=== PATIENT | female | born 1975 | race Caucasian/White ===

== ENCOUNTER 2017-04-12 20:25 | Emergency (ER) | payer BC ==
[2017-04-12] MEDS ORDERED: MORPHINE SULFATE 5 MG/ML PFS IM ONE (21:07)
[2017-04-12] MEDS ORDERED: PROMETHAZINE HCL 25 MG/ML VIAL IM ONE (21:07)
--- NOTE | 2017-04-12 21:37 | Emergency Department Record ---
History of Present Illness - General Chief complaint: Pain Stated complaint: LT SHOULDER INJURY Time Seen by Provider: 04/12/17 20:52 Source: Patient Mode of Arrival: Ambulatory Limitations: No limitations - History of Present Illness Initial comments: pt has been having increased pain in l shoulder without known injury. pt has a hx of shoulder replacement MD Complaint: Extremity pain, Extremity swelling Onset/Timin -: Hour(s) Location: Left, Shoulder Severity scale (1-10): 10 Quality: Aching, Sharp Consistency: Constant Improves with: Nothing Worsens with: Nothing Associated Symptoms: Denies other symptoms - Related Data Home Medications Medication Instructions Recorded Confirmed Last Taken Baclofen [Baclofen] 10 mg PO QID 04/12/17 04/12/17 Unknown Diazepam [Diazepam] 2 mg PO TID 04/12/17 04/12/17 Unknown Trazodone HCl 150 mg PO QHS 04/12/17 04/12/17 Unknown Previous Rx's Medication Instructions Recorded Hydrocodone/Acetaminophen [Lund 1 each PO QID #10 tablet 04/12/17 5-325 Tablet] Allergies Allergy/AdvReac Type Severity Reaction Status Date / Time hydromorphone HCl Allergy HIVES Verified 10/19/14 19:16 [From Dilaudid] Travel Screening - Travel/Exposure Within Last 30 Days Have you traveled within the last 30 days?: No Review of Systems Reviewed: No additional complaints except as noted below Constitutional: Reports: As per HPI. Denies: Chills, Fever, Malaise, Night sweats, Weakness, Weight change Eyes: Reports: As per HPI. Denies: Eye discharge, Eye pain, Photophobia, Vision change ENT: Reports: As per HPI. Denies: Congestion, Dental pain, Ear pain, Epistaxis , Hearing loss, Throat pain Respiratory: Reports: As per HPI. Denies: Cough, Dyspnea, Hemoptysis, Stridor, Wheezes Cardiovascular: Reports: As per HPI. Denies: Arrhythmia, Chest pain, Dyspnea on exertion, Edema, Murmurs, Orthopnea, Palpitations, Paroxysmal nocturnal dyspnea, Rheumatic Fever, Syncope Endocrine: Reports: As per HPI. Denies: Fatigue, Heat or cold intolerance, Polydipsia, Polyuria Gastrointestinal: Reports: As per HPI. Denies: Abdominal pain, Constipation, Diarrhea, Hematemesis, Hematochezia, Melena, Nausea, Vomiting Genitourinary: Reports: As per HPI. Denies: Abnormal menses, Discharge, Dyspareunia, Dysuria, Frequency, Hematuria, Incontinence, Retention, Urgency Musculoskeletal: Reports: As per HPI, Other. Denies: Arthralgia, Back pain, Gout, Joint swelling, Myalgia, Neck pain Skin: Reports: As per HPI. Denies: Bruising, Change in color, Change in hair/ nails, Lesions, Pruritus, Rash Neurological: Reports: As per HPI. Denies: Abnormal gait, Confusion, Headache, Numbness, Paresthesias, Seizure, Tingling, Tremors, Vertigo, Weakness Psychiatric: Reports: As per HPI. Denies: Anxiety, Auditory hallucinations, Depression, Homicidal thoughts, Suicidal thoughts, Visual hallucinations Hematological/Lymphatic: Reports: As per HPI. Denies: Anemia, Blood Clots, Easy bleeding, Easy bruising, Swollen glands Past Medical History - SOCIAL HISTORY Smoking Status: Current every day smoker Alcohol Use: None Drug Use: None - RESPIRATORY Hx Respiratory Disorders: Yes Hx COPD: Yes - CARDIOVASCULAR Hx Cardio Disorders: No - NEURO Hx Neuro Disorders: Yes Hx Headaches: Yes (Migraines) Hx Seizures: Yes - GI Hx GI Disorders: Yes Hx Ulcer: Yes - Hx Genitourinary Disorders: No - ENDOCRINE Hx Endocrine Disorders: No - MUSCULOSKELETAL Hx Musculoskeletal Disorders: Yes Hx Arthritis: Yes Hx Fibromyalgia: Yes - PSYCH Hx Psych Problems: Yes Hx Anxiety: Yes Hx Depression: Yes - HEMATOLOGY/ONCOLOGY Hx Hematology/Oncology Disorders: No Family Medical History Any Significant Family History?: Yes Hx Anxiety: Mother, Grandparents Hx Cancer: Mother, Grandparents Hx Depression: Mother, Grandparents Hx HTN: Father, Mother, Brother/Sister, Grandparents Physical Exam - General General Appearance: Alert, Oriented x3, Cooperative, Mild distress - Head Head exam: Normal inspection - Eye Eye exam: Normal appearance, PERRL, EOMI Pupils: Normal accommodation - ENT ENT exam: Normal exam, Mucous membranes moist, Normal external ear exam, Normal orophraynx Ear exam: Normal external inspection. negative: External canal tenderness Nasal Exam: Normal inspection. negative: Discharge, Sinus tenderness Mouth exam: Normal external inspection, Tongue normal Teeth exam: Normal inspection. negative: Dental caries Throat exam: Normal inspection. negative: Tonsillar erythema, Tonsillar exudate - Neck Neck exam: Normal inspection, Full ROM. negative: Tenderness - Respiratory Respiratory exam: Normal lung sounds bilaterally. negative: Respiratory distress - Cardiovascular Cardiovascular Exam: Regular rate, Normal rhythm, Normal heart sounds - GI/Abdominal GI/Abdominal exam: Soft, Normal bowel sounds. negative: Tenderness - Rectal Rectal exam: Deferred - exam: Deferred - Extremities Extremities exam: Normal capillary refill, Tenderness. negative: Normal inspection, Full ROM Image of Full Body: 1 - tender - Back Back exam: Reports: Normal inspection, Full ROM. Denies: Muscle spasm, Rash noted, Tenderness - Neurological Neurological exam: Alert, CN II-XII intact, Normal gait, Oriented X3 - Psychiatric Psychiatric exam: Normal affect, Normal mood - Skin Skin exam: Dry, Intact, Normal color, Warm Course Vital Signs 04/12/17 20:39 Temperature 98.8 F Pulse Rate [ 93 H Pulse Ox Probe] Respiratory 20 Rate Blood Pressure 121/77 [Right Arm] Pulse Ox 94 L - Reevaluation(s) Reevaluation #1: 04/12/17 22:19 pt feels better. Disposition Disposition: Discharge Clinical Impression: Rotator cuff strain Qualifiers: Encounter type: initial encounter Laterality: left Qualified Code(s): S46.012A - Strain of muscle(s) and tendon(s) of the rotator cuff of left shoulder, initial encounter Disposition: Home, Self-Care Condition: (1) Good Instructions: Rotator Cuff Injury (ED), Shoulder Pain (ED) Additional Instructions: follow up with orthopedic physician tomorrow without fail. return sooner if worse. ice to shoulder. sling for 3 days only. do range of motion exercises. ice to shoulder Prescriptions: Hydrocodone/Acetaminophen [Lund 5-325 Tablet] 1 each PO QID #10 tablet Forms: Patient Portal Access Quality - Quality Measures Quality Measures: N/A - Blood Pressure Screening Does Patient Have Any of the Following: No Blood Pressure Classification: Pre-Hypertensive BP Reading Systolic Measurement: 121 Diastolic Measurement: 77 Screening for High Blood Pressure: < Pre-Hypertensive BP, F/U Documented > [ G8950] Pre-Hypertensive Follow-up Interventions: Follow-up with rescreen every year.
[2017-04-12] MEDS ORDERED: HYDROCODONE/APAP 5/325MG TABLET PO ONE (22:18)
--- NOTE | 2017-04-13 13:35 | RADIOLOGY REPORT ---
EXAM: LEFT SHOULDER HISTORY: PAIN. TECHNIQUE: Three views of the left shoulder were obtained. Comparison: 10/19/14 left shoulder. Encounter: Initial. FINDINGS: Osteopenia. Left humeral arthroplasty. No evidence for acute fracture or dislocation. IMPRESSION: NO ACUTE OSSEOUS ABNORMALITY. JOB NUMBER: [id number] MTDD
== END 2017-04-12 22:34 | disposition home or self-care (01) ==
LOC: ER 20:25
DX: S46.012A Strain of muscle(s) and tendon(s) of the rotator cuff of left shoulder, initial encounter (principal); X58.XXXA Exposure to other specified factors, initial encounter; Z96.612 Presence of left artificial shoulder joint
CPT/HCPCS: 99283; 96372; 99284; 73030; J2270; J2550

== ENCOUNTER 2017-08-16 18:57 | Observation (INO) | payer BC ==
[2017-08-16] MEDS ORDERED: ASPIRIN 81 MG CHEWABLE TABLET PO ONE (19:16)
[2017-08-16 19:18] LABS: BASO % 0.6 % (0-6); EOS % 5.3 % (0-6); GRAN % 56.4 % (47-80); HEMATOCRIT 42.2 % (35.0-47.0); HEMOGLOBIN 13.7 gm/dl (11.6-16.0); LYMPH % 27.4 % (16-45); MEAN CORPUSCULAR HEMOGLOBIN 30.2 pg (27-33); MEAN CORPUSCULAR HGB CONC 32.5 g/dl (32-36); MEAN PLATELET VOLUME 11.2 fl (7.4-10.4); MONO % 10.3 % (0-9); PLATELET COUNT 202 K/uL (130-400); RED BLOOD COUNT 4.54 M/uL (3.80-5.40); RED CELL DISTRIBUTION WIDTH 14.3 % (11.5-14.5); WHITE BLOOD COUNT W/O DIFF 10.7 K/uL (4.2-12.2)
--- NOTE | 2017-08-16 19:21 | Emergency Department Record ---
History of Present Illness - General Chief Complaint: Chest Pain Stated Complaint: CHEST PAIN Time Seen by Provider: 08/16/17 19:00 Source: Patient Mode of Arrival: Ambulatory Limitations: No limitations - History of Present Illness Initial Comments: pt has had cp for 6 hours that was intermittent at first but is now constan . she has pressure. it radiates to axilla. it gets worse w inspir. pos sob. no n /v. pt smokes MD Complaint: Chest pain Onset/Timin -: Hour(s) Onset: Other Pain Location: Left chest, Other Pain Radiation: LUE Severity scale (1-10): 6 Quality: Tightness, Other Worsens With: Inspiration - Related Data Home Medications Medication Instructions Recorded Confirmed Last Taken Butalbital/Aspirin/Caffeine 1 each PO ASDIR 08/16/17 08/16/17 Unknown [Fiorinal 50-325-40 mg Capsule] Gabapentin [Neurontin] 100 mg PO TID 08/16/17 08/16/17 Unknown Sumatriptan Succinate [Imitrex] 100 mg PO ASDIR 08/16/17 08/16/17 08/12/17 Allergies Allergy/AdvReac Type Severity Reaction Status Date / Time hydromorphone HCl Allergy HIVES Unverified 05/08/17 12:32 [From Dilaudid] Travel Screening - Travel/Exposure Within Last 30 Days Have you traveled within the last 30 days?: No - Travel/Exposure Within Last Year Have you traveled outside the [place] in the last year?: No - Additonal Travel Details Have you been exposed to anyone with a communicable illness?: No - Travel Symptoms Symptom Screening: None Review of Systems Reviewed: No additional complaints except as noted below Constitutional: Reports: As per HPI. Denies: Chills, Fever, Malaise, Night sweats, Weakness, Weight change Eyes: Reports: As per HPI. Denies: Eye discharge, Eye pain, Photophobia, Vision change ENT: Reports: As per HPI. Denies: Congestion, Dental pain, Ear pain, Epistaxis , Hearing loss, Throat pain Respiratory: Reports: As per HPI. Denies: Cough, Dyspnea, Hemoptysis, Stridor, Wheezes Cardiovascular: Reports: As per HPI, Chest pain. Denies: Arrhythmia, Dyspnea on exertion, Edema, Murmurs, Orthopnea, Palpitations, Paroxysmal nocturnal dyspnea, Rheumatic Fever, Syncope Endocrine: Reports: As per HPI. Denies: Fatigue, Heat or cold intolerance, Polydipsia, Polyuria Gastrointestinal: Reports: As per HPI. Denies: Abdominal pain, Constipation, Diarrhea, Hematemesis, Hematochezia, Melena, Nausea, Vomiting Genitourinary: Reports: As per HPI. Denies: Abnormal menses, Discharge, Dyspareunia, Dysuria, Frequency, Hematuria, Incontinence, Retention, Urgency Musculoskeletal: Reports: As per HPI. Denies: Arthralgia, Back pain, Gout, Joint swelling, Myalgia, Neck pain Skin: Reports: As per HPI. Denies: Bruising, Change in color, Change in hair/ nails, Lesions, Pruritus, Rash Neurological: Reports: As per HPI. Denies: Abnormal gait, Confusion, Headache, Numbness, Paresthesias, Seizure, Tingling, Tremors, Vertigo, Weakness Psychiatric: Reports: As per HPI. Denies: Anxiety, Auditory hallucinations, Depression, Homicidal thoughts, Suicidal thoughts, Visual hallucinations Hematological/Lymphatic: Reports: As per HPI. 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 Hx Neuro Disorders: Yes Hx Headaches: Yes (Migraines) Hx Seizures: Yes - GI Hx GI Disorders: Yes Hx Reflux: Yes Hx Ulcer: Yes - Hx Genitourinary Disorders: No - ENDOCRINE Hx Endocrine Disorders: No - MUSCULOSKELETAL Hx Musculoskeletal Disorders: Yes Hx Arthritis: Yes Hx Fibromyalgia: Yes - PSYCH Hx Psych Problems: Yes Hx Anxiety: Yes Hx Depression: Yes - HEMATOLOGY/ONCOLOGY Hx Hematology/Oncology Disorders: No Family Medical History Any Significant Family History?: No Hx Anxiety: Mother, Grandparents Hx Cancer: Mother, Grandparents Hx Depression: Mother, Grandparents Hx HTN: Father, Mother, Brother/Sister, Grandparents Course Vital Signs 08/16/17 18:58 Temperature 98 F Pulse Rate 82 Respiratory 18 Rate Blood Pressure 118/77 Pulse Ox 96 - Reevaluation(s) Reevaluation #1: 08/16/17 20:32 pts pain got better with nitro. Medical Decision Making - Lab Data Result diagrams: 08/16/17 19:08 08/16/17 19:08 Disposition Disposition: Admit Clinical Impression: Chest pain Qualifiers: Chest pain type: unspecified Qualified Code(s): R07.9 - Chest pain, unspecified Disposition: Still a Patient at [facility] Decision to Admit: Admit from ER Decision to Admit Date: 08/16/17 Decision to Admit Time: 20:34 Forms: Patient Portal Access Quality - Quality Measures Quality Measures: N/A - Blood Pressure Screening Does Patient Have Any of the Following: No Blood Pressure Classification: Normal BP Reading Systolic Measurement: 118 Diastolic Measurement: 77 Screening for High Blood Pressure: < Normal BP, F/U Not Required > [G8783]
[2017-08-16] MEDS: NITROGLYCERIN 0.4MG SL TABLET #25 BTL SL ONE ×2 (19:29→19:34)
[2017-08-16 19:30] LABS: BLOOD UREA NITROGEN 16 mg/dL (6-20); CREATININE 0.9 mg/dL (0.5-0.9); EST GLOMERULAR FILTRATION RATE > 60 mL/min
[2017-08-16] MEDS ORDERED: 0.9 % SODIUM CHLORIDE 1,000 ML BAG IV ONE (19:30)
[2017-08-16 19:31] LABS: TOTAL PROTEIN 7.1 g/dL (6.6-8.7)
[2017-08-16 19:33] LABS: GLUCOSE,RANDOM 92 mg/dL (74-109)
[2017-08-16 19:35] LABS: ALB/GLOB RATIO 1.5 (1.1-1.8); ALBUMIN 4.3 g/dL (4.0-5.0); ALKALINE PHOSPHATASE 64 U/L (35-104); ALT/SGPT 10 U/L (<33); AST/SGOT 15 U/L (10.0-35.0); CREATINE PHOSPHOKINASE 143 U/L (26-192)
[2017-08-16 19:37] LABS: CKMB 1.8 ng/mL (<3.77)
[2017-08-16] MEDS ORDERED: ACETAMINOPHEN 500 MG TABLET PO ONE (20:10)
[2017-08-16] MEDS ORDERED: LORAZEPAM 2 MG/ML VIAL IV ONE (21:08)
[2017-08-16] MEDS ORDERED: ACETAMINOPHEN 500 MG TABLET PO PRN (21:41)
[2017-08-16] MEDS ORDERED: TEMAZEPAM 15 MG CAPSULE PO PRN (21:41)
[2017-08-16] MEDS ORDERED: BACLOFEN 10 MG TABLET PO SCH (22:00)
[2017-08-16] MEDS ORDERED: DIAZEPAM 2 MG PO SCH (22:00)
[2017-08-16] MEDS: HYDROCODONE/APAP 7.5/325MG TABLET PO ONE (22:27)
[2017-08-16] MEDS: DIAZEPAM 5 MG TABLET PO SCH (22:28)
[2017-08-16] MEDS: GABAPENTIN 100 MG CAPSULE PO SCH (22:28)
[2017-08-16] MEDS ORDERED: TRAZODONE 50 MG TABLET PO SCH (22:30)
[2017-08-17] MEDS: HYDROCODONE/APAP 7.5/325MG TABLET PO ONE (06:20)
--- NOTE | 2017-08-17 07:14 | RADIOLOGY REPORT ---
EXAM: CHEST, TWO VIEWS HISTORY: DIFFICULTY BREATHING. TECHNIQUE: Frontal and lateral views of the chest were obtained. Comparison: 03/25/12 chest x-ray. FINDINGS: The heart size is normal. The lungs are clear. No pneumothorax. Post surgical change left humerus. IMPRESSION: NO ACUTE CARDIOPULMONARY PROCESS. JOB NUMBER: [id number] MTDD
[2017-08-17] MEDS ORDERED: BREO (FLUTICASONE/VILANTEROL) 100MCG/25MCG INHALER INH SCH (10:00)
[2017-08-17] MEDS ORDERED: BACLOFEN 10 MG TABLET PO SCH (10:00)
[2017-08-17] MEDS ORDERED: ASPIRIN 325 MG TAB ENTERIC-COATED PO SCH (10:00)
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
[2017-08-17] MEDS: DIAZEPAM 5 MG TABLET PO SCH (11:08)
[2017-08-17] MEDS: GABAPENTIN 100 MG CAPSULE PO SCH (11:08)
[2017-08-17 11:11] LABS: BASO % 0.9 % (0-6); GRAN % 39.6 % (47-80); HEMATOCRIT 41.3 % (35.0-47.0); HEMOGLOBIN 13.4 gm/dl (11.6-16.0); LYMPH % 43.2 % (16-45); MEAN CELL VOLUME 93.9 fl (81-97); MEAN CORPUSCULAR HEMOGLOBIN 30.5 pg (27-33); MEAN CORPUSCULAR HGB CONC 32.4 g/dl (32-36); MONO % 10.3 % (0-9); PLATELET COUNT 193 K/uL (130-400); RED CELL DISTRIBUTION WIDTH 14.3 % (11.5-14.5); WHITE BLOOD COUNT W/O DIFF 6.5 K/uL (4.2-12.2)
[2017-08-17] MEDS ORDERED: SUMATRIPTAN 6 MG/0.5 ML VIAL SQ PRN (11:42)
--- NOTE | 2017-08-17 12:09 | Discharge Summary ---
Providers Discharge Summary Date: 08/17/17 Date of admission: 08/16/17 21:21 Expected Date of Discharge: 08/17/17 Attending physician: BOZENA LAUREANO Primary care physician: BERNIE PORTILLO M.D. Consults: Consult Orders 08/16/17 21:41 Consult NOW Consulting Provider: Abel Kaufman Physician Instructions: Reason For Exam: chest pain, better w ntg Physical Exam - Vital Signs Vital Signs: Vital Signs - Last 24 Hrs Temp Pulse Pulse Pulse Resp BP BP 08/17/17 11:08 80 16 08/17/17 09:00 98.7 F 68 18 95/56 08/17/17 05:00 98.1 F 68 18 97/59 08/17/17 00:10 98.2 F 65 18 93/53 08/16/17 21:41 98.0 F 71 18 111/53 08/16/17 21:17 71 18 98/72 08/16/17 20:00 65 20 111/71 08/16/17 19:38 85 22 100/70 08/16/17 19:30 84 24 108/66 08/16/17 19:25 74 24 111/74 08/16/17 18:58 98 F 82 18 118/77 Pulse Ox 08/17/17 11:08 08/17/17 09:00 95 08/17/17 05:00 95 08/17/17 00:10 95 08/16/17 21:41 97 08/16/17 21:17 98 08/16/17 20:00 98 08/16/17 19:38 97 08/16/17 19:30 96 08/16/17 19:25 96 08/16/17 18:58 96 - General General Appearance: Alert, Oriented x3, Cooperative, No acute distress Limitations: No limitations - Head Head exam: Atraumatic, Normocephalic, Normal inspection - Eye Eye exam: Normal appearance - Neck Neck exam: Normal inspection, Full ROM - Respiratory Respiratory exam: Normal lung sounds bilaterally - Cardiovascular Cardiovascular Exam: Regular rate, Normal rhythm, Normal heart sounds Peripheral Pulses: 2+: Radial (R), Radial (L), Dorsalis Pedis (R), Dorsalis Pedis (L) - GI/Abdominal GI/Abdominal exam: Soft, Normal bowel sounds - Rectal Rectal exam: Deferred - exam: Deferred - Extremities Extremities exam: Normal capillary refill. negative: Calf tenderness, Pedal edema - Back Back exam: Reports: Normal inspection - Neurological Neurological exam: Alert, Normal gait, Oriented X3 - Psychiatric Psychiatric exam: Normal affect, Normal mood - Skin Skin exam: Dry, Normal color Hospitalization - Hospitalization Admission Diagnosis: chest pain - Problem List/Discharge Diagnosis (1) Chest pain Current Visit: Yes Status: Acute Discharge Diagnosis: Chest pain type: unspecified Qualified Code(s): R07.9 - Chest pain, unspecified Base Code: R07.9 - CHEST PAIN, UNSPECIFIED Comment: 08/17/17: Presented to ED with chest pressure and left axilla pain. Relieved by 2 SL nitro. Initial troponins negative x 2. EKG in ED unremarkable, normal chest x-ray. No cardiac history, current ppd smoker. -Continue serial troponins, EKGs -Dr. Kaufman consult -Exercise stress today -urology nurse (2) Migraine Current Visit: Yes Status: Acute Base Code: G43.909 - MIGRAINE, UNSP, NOT INTRACTABLE, WITHOUT STATUS MIGRAINOSUS Comment: 08/17/17: History of migraines , migraine began after receiving SL nitro. -Imitrex and fioricet to be given after stress test (3) Full code status Current Visit: Yes Status: Acute Base Code: Z78.9 - OTHER SPECIFIED HEALTH STATUS Comment: 08/17/17: Pt full code this admission - Hospitalization Course Disposition: Home, Self-Care Hospital Course: 42 year old female presents with chest pain. The pain began after mowing her lawn yesterday. She described it as substernal chest pressure that radiated to her left axilla. Denied any shortness of breath or nausea with the chest pain. Additional medical history includes migraines, stroke at [facility] 18 years ago, tubal ligation, COPD, and current pack per day smoker. Patient's mother of heart disease. While in the ED patient received 2 doses of SL nitro, which relieved the chest pain. Initial troponins x 2 were negative, and chest x-ray was negative. Patient was afebrile, heart rate 82, blood pressure 118/77, and pulse ox 96% on room air. Initial EKG indicated possible old infarct. Patient denies any cardiac history or having seen a manager outreach in the past. 08/17/17: Pt resting comfortably in bed, alert & oriented x 3. Patient denies any chest pain/pressure, or arm symptoms this morning. Patient is complaining of a migraine, states it started after receiving nitro in the ER. She normally takes Imitrex or Fioricet at home, but we are holding these medications prior to stress test this morning. Dr. Kaufman ([facility]) consulted, would like to do exercise stress this morning. Patient remains on transit manager, cardiac diet. Stress test completed with Dr. aKufman this morning was normal. Patient instructed to follow-up with PCP within the next 2 weeks. Patient instructed to return to ER for any addition chest pain, shortness of breath, or other concerning symptoms. Procedures: Imaging and X-Rays 08/16/17 20:12 CXR [CHEST 2 VIEWS] [RAD] Stat Cardiology Procedures 08/16/17 19:16 EKG NOW 08/16/17 21:41 Seo Assistant .Continuous EKG QDX2@0600 08/17/17 08:54 Stress EKG/STD Treadmill NOW Abnormal Labs: Abnormal Lab Results 08/16/17 08/16/17 08/17/17 Range/Units 19:08 19:08 11:07 MPV 11.2 H 11.0 H (7.4-10.4) fl Gran % 39.6 L (47-80) % Monocytes % 10.3 H 10.3 H (0-9) % Triglycerides 161 H (<150) mg/dL LDL Cholesterol Measurd 106.0 H (0-100) mg/dL Condition at Discharge: (1) Good VTE Discharge VTE Reason For No Overlap Therapy: Not Indicated Discharge Medications - Discharge Medications Home Medications: Ambulatory Orders Baclofen 10 mg PO BID 04/12/17 [Last Taken Unknown] Diazepam 2 mg PO BID 04/12/17 [Last Taken 08/16/17] Trazodone HCl 150 mg PO QHS 04/12/17 [Last Taken 08/15/17] Butalbital/Aspirin/Caffeine [Fiorinal 50-325-40 mg Capsule] 1 each PO Q4H PRN [Last Taken Unknown] Gabapentin [Neurontin] 100 mg PO TID 08/16/17 [Last Taken Unknown] Sumatriptan Succinate [Imitrex] 100 mg PO DAILY PRN 08/16/17 [Last Taken ] Mometasone/Formoterol [Dulera 100 Mcg/5 Mcg Inhaler] 2 puff INH BID 08/17/17 [ Last Taken Unknown] Discharge Plan - Discharge Instructions Activity at Discharge: Increase Activity as Tolerated Diet at Discharge: Regular Diet Additional Instructions: Follow-up with PCP in 2 weeks. Return to ER for any additional chest pain Stop smoking Quality Measures - Quality Measures Quality Measures: Documentation of Current Medications in Medical Record, Screening for High Blood Pressure and F/U Documented - Current Medications Quality Measure: Measure #130: Documentation of Current Medications Documentation of Current Medications: <Current Medications Documented/Reviewed> [G8427] - Blood Pressure Screening Quality Measure: Screening for High Blood Pressure and Follow-Up Documented Does Patient Have Any of the Following: No Blood Pressure Classification: Normal BP Reading Systolic Measurement: 118 Diastolic Measurement: 77 Screening for High Blood Pressure: < Normal BP, F/U Not Required > [G8783] - Elder Abuse Suspicion Index EASI Reference Information: Ehsan DAVID, Ion C, Krista D, Sindi Moody.Development and validation of a tool to assist physicians identification of elder abuse: The Elder Abuse Suspicion Index (EASI ). Journal of Elder Abuse and Neglect, 2008; 20 (3): 276-300.
[2017-08-17 12:10] LABS: ALB/GLOB RATIO 1.6 (1.1-1.8); ALBUMIN 4.1 g/dL (4.0-5.0); ALKALINE PHOSPHATASE 57 U/L (35-104); ALT/SGPT 12 U/L (<33); AST/SGOT 17 U/L (10.0-35.0); BLOOD UREA NITROGEN 14 mg/dL (6-20); CREATININE 0.7 mg/dL (0.5-0.9); EST GLOMERULAR FILTRATION RATE > 60 mL/min; GLUCOSE,RANDOM 85 mg/dL (74-109); TOTAL PROTEIN 6.7 g/dL (6.6-8.7)
--- NOTE | 2017-08-17 16:10 | Medical Records Consult ---
HISTORY OF PRESENT ILLNESS: The patient is a 42-year-old white female who presented to the emergency room after having 5 or 6 hours' worth of intermittent chest pain during the day. It was hard for her to take in a full breath. It did radiate into the axilla. There was no evidence of associated symptoms such as nausea, vomiting, diaphoresis. No prior history of heart disease. EKG in the emergency room was normal. She was admitted for observation. Subsequent enzymes were negative. EKG remains normal. She has no history of heart disease in the past. Denies history of hypertension or diabetes mellitus. She does smoke and has been diagnosed with COPD. MEDICATIONS: Prior to admission: 1. Fiorinal p.r.n. 2. Neurontin 100 mg t.i.d. 3. Imitrex 100 mg as needed. PAST MEDICAL HISTORY: Apparent vascular migraines. See HPI. FAMILY HISTORY: Noncontributory. SOCIAL HISTORY: See HPI. REVIEW OF SYSTEMS: A 10-point review of systems reviewed and confirmed. Pertinent positives in HPI, otherwise negative. PHYSICAL EXAMINATION: VITAL SIGNS: Blood pressure 120/80, pulse 80, respiratory rate 12. GENERAL: A white female in no acute distress. Appears somewhat depressed. HEAD, EYES, EARS, NOSE, THROAT: Normocephalic and atraumatic. Buccal mucosa is pink and moist. There is no cyanosis. Lids, conjunctivae, and sclerae are clear. Pupils are equal, round, and reactive to light and accommodation. NECK: Supple. No bruits. No thyromegaly. CHEST: Occasional expiratory wheeze. Slight increased AP diameter. CARDIOVASCULAR: Regular. No murmur, gallops, lifts, or heaves are noted. ABDOMEN: Soft, nontender. EXTREMITIES: Pulses are equal in lower extremities. No cyanosis or edema. NEUROLOGIC: Cranial nerves II-XII are intact. Sensation is intact. PSYCHIATRIC: Patient oriented to person, place, and time. Does appear somewhat depressed. DIAGNOSTIC DATA: Patient exercised on a treadmill, went about 11 METS. No EKG changes. IMPRESSION: 1. Noncardiac chest pain. 2. History of migraines. 3. Chronic obstructive pulmonary disease. Continues to smoke. PLAN: The patient needs to stop smoking. Can be followed as an o patient with the primary physician for primary risk factor stratification and treatment. [facility]ITALBert
--- NOTE | 2017-08-17 16:10 | Stress Test Report ---
DATE OF STUDY: 08/17/2017 Resting blood pressure 128/70. Resting EKG with sinus rhythm present. Normal electrocardiogram. Patient exercised in the treadmill using the August protocol exercising briefly into stage 4. Heart rate rise approximately 160. Maximum recorded blood pressure 174/87. There is a fair amount of baseline artifact at peak exercise but the immediate post-exercise tracing did not reveal any significant ST-segment changes. Occasional PVCs are noted. IMPRESSION: This is a technically negative stress test at approximately the 11-12 MET level in an individual who has an above-average level of cardiovascular fitness for age. MTDD
== END 2017-08-17 14:14 | disposition home or self-care (01) ==
LOC: ER 18:57 → MEDSURG 21:21
PROVIDERS: ADMIT Internal Medicine; ATTEND Internal Medicine
DX: R07.9 Chest pain, unspecified (principal); G43.909 Migraine, unspecified, not intractable, without status migrainosus; J44.9 Chronic obstructive pulmonary disease, unspecified; K21.9 Gastro-esophageal reflux disease without esophagitis; K25.9 Gastric ulcer, unspecified as acute or chronic, without hemorrhage or perforation; M19.90 Unspecified osteoarthritis, unspecified site; M79.7 Fibromyalgia; F17.210 Nicotine dependence, cigarettes, uncomplicated; R56.9 Unspecified convulsions; R55 Syncope and collapse
CPT/HCPCS: 99285 ×2; 96374; 82550; 85025 ×2; 82553 ×2; 80053 ×2; 80061; 84484 ×2; 85379; 71046; 93005 ×2; 93017; 93010; G0378 ×2; J3490 ×2; J3030; J2060; 99220; J7030

== ENCOUNTER 2017-10-10 07:36 | Emergency (ER) | payer BC ==
[2017-10-10] MEDS ORDERED: IBUPROFEN 600 MG TABLET PO ONE (08:13)
--- NOTE | 2017-10-10 08:13 | Emergency Department Record ---
History of Present Illness - General Chief Complaint: Ankle/Foot Injury Stated Complaint: RIGHT BIG TOE INJURY Time Seen by Provider: 10/10/17 08:07 Source: Patient, RN notes reviewed Mode of Arrival: Ambulatory - History of Present Illness Initial Comments: ran into a baby gate 2 hours ago and fine before that. Onset/Timin -: Hour(s) - Related Data Previous Rx's Medication Instructions Recorded Hydrocodone/Acetaminophen [[place] 1 tab PO Q6H PRN #12 tab 10/10/17 5mg/325mg] Allergies Allergy/AdvReac Type Severity Reaction Status Date / Time hydromorphone HCl Allergy HIVES Unverified 10/10/17 07:52 [From Dilaudid] Travel Screening - Travel/Exposure Within Last 30 Days Have you traveled within the last 30 days?: No - Travel/Exposure Within Last Year Have you traveled outside the [place] in the last year?: No - Additonal Travel Details Have you been exposed to anyone with a communicable illness?: No Review of Systems Reviewed: No additional complaints except as noted below Constitutional: Reports: As per HPI. Denies: Chills, Fever, Malaise, Night sweats, Weakness, Weight change Eyes: Reports: As per HPI. Denies: Eye discharge, Eye pain, Photophobia, Vision change ENT: Reports: As per HPI. Denies: Congestion, Dental pain, Ear pain, Epistaxis , Hearing loss, Throat pain Respiratory: Reports: As per HPI. Denies: Cough, Dyspnea, Hemoptysis, Stridor, Wheezes Cardiovascular: Reports: As per HPI. Denies: Arrhythmia, Chest pain, Dyspnea on exertion, Edema, Murmurs, Orthopnea, Palpitations, Paroxysmal nocturnal dyspnea, Rheumatic Fever, Syncope Endocrine: Reports: As per HPI. Denies: Fatigue, Heat or cold intolerance, Polydipsia, Polyuria Gastrointestinal: Reports: As per HPI. Denies: Abdominal pain, Constipation, Diarrhea, Hematemesis, Hematochezia, Melena, Nausea, Vomiting Genitourinary: Reports: As per HPI. Denies: Abnormal menses, Discharge, Dyspareunia, Dysuria, Frequency, Hematuria, Incontinence, Retention, Urgency Musculoskeletal: Reports: As per HPI. Denies: Arthralgia, Back pain, Gout, Joint swelling, Myalgia, Neck pain Skin: Reports: As per HPI. Denies: Bruising, Change in color, Change in hair/ nails, Lesions, Pruritus, Rash Neurological: Reports: As per HPI. Denies: Abnormal gait, Confusion, Headache, Numbness, Paresthesias, Seizure, Tingling, Tremors, Vertigo, Weakness Psychiatric: Reports: As per HPI. Denies: Anxiety, Auditory hallucinations, Depression, Homicidal thoughts, Suicidal thoughts, Visual hallucinations Hematological/Lymphatic: Reports: As per HPI. 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 - NEURO Hx Neuro Disorders: Yes Hx Headaches: Yes (Migraines) Hx Seizures: Yes - GI Hx GI Disorders: Yes Hx Reflux: Yes Hx Ulcer: Yes - Hx Genitourinary Disorders: No - ENDOCRINE Hx Endocrine Disorders: No - MUSCULOSKELETAL Hx Musculoskeletal Disorders: Yes Hx Arthritis: Yes Hx Fibromyalgia: Yes - PSYCH Hx Psych Problems: Yes Hx Anxiety: Yes Hx Depression: Yes - HEMATOLOGY/ONCOLOGY Hx Hematology/Oncology Disorders: No Family Medical History Any Significant Family History?: Yes Hx Anxiety: Mother, Grandparents Hx Cancer: Mother, Grandparents Hx Depression: Mother, Grandparents Hx HTN: Father, Mother, Brother/Sister, Grandparents Physical Exam - General General Appearance: Alert, Oriented x3, Cooperative, No acute distress - Head Head exam: Normal inspection - Eye Eye exam: Normal appearance, PERRL Pupils: Normal accommodation - ENT ENT exam: Normal exam, Mucous membranes moist, Normal external ear exam, Normal orophraynx, TM's normal bilaterally Ear exam: Normal external inspection. negative: External canal tenderness Nasal Exam: Normal inspection. negative: Discharge, Sinus tenderness Mouth exam: Normal external inspection, Tongue normal Teeth exam: Normal inspection. negative: Dental caries Throat exam: Normal inspection. negative: Tonsillar erythema, Tonsillar exudate - Neck Neck exam: Normal inspection, Full ROM. negative: Tenderness - Respiratory Respiratory exam: Normal lung sounds bilaterally. negative: Respiratory distress - Cardiovascular Cardiovascular Exam: Regular rate, Normal rhythm, Normal heart sounds - GI/Abdominal GI/Abdominal exam: Soft, Normal bowel sounds. negative: Tenderness - Rectal Rectal exam: Deferred - exam: Deferred - Extremities Extremities exam: Normal capillary refill, Tenderness (pain and swollen in the first MP area of foot right) - Back Back exam: Reports: Normal inspection, Full ROM. Denies: Muscle spasm, Rash noted, Tenderness - Neurological Neurological exam: Alert, Normal gait, Oriented X3, Reflexes normal - Psychiatric Psychiatric exam: Normal affect, Normal mood - Skin Skin exam: Dry, Intact, Normal color, Warm Course Vital Signs 10/10/17 07:38 Temperature 98.0 F Pulse Rate 75 Respiratory 17 Rate Blood Pressure 113/79 Pulse Ox 96 - Reevaluation(s) Reevaluation #1: patient states she can take norco 10/10/17 09:00 Medical Decision Making - Data Complexity MDM Data: X-Ray Ordered and/or Reviewed (right great toe fracture proximal phalanx) Disposition Clinical Impression: Toe fracture, right Qualifiers: Encounter type: initial encounter Toe: great toe Fracture type: closed Phalanx : proximal Fracture alignment: displaced Qualified Code(s): S92.411A - Displaced fracture of proximal phalanx of right great toe, initial encounter for closed fracture Disposition: Home, Self-Care Condition: (1) Good Instructions: Toe Fracture (ED) Additional Instructions: follow up with Dr. Rice in 10 days. motrin OTC 3 oills three times a day and if you need more pain control use norco every 6 hoursas needed Prescriptions: Hydrocodone/Acetaminophen [[place] 5mg/325mg] 1 tab PO Q6H PRN #12 tab PRN Reason: Pain - General Forms: Patient Portal Access Time of Disposition: 09:03 Quality - Quality Measures Quality Measures: N/A - Headache: Neuroimaging ICD10 Codes Entered: No - Blood Pressure Screening Does Patient Have Any of the Following: No Blood Pressure Classification: Normal BP Reading Systolic Measurement: 113 Diastolic Measurement: 79 Screening for High Blood Pressure: < Normal BP, F/U Not Required > [G8783]
--- NOTE | 2017-10-11 07:42 | RADIOLOGY REPORT ---
EXAM: RIGHT FOOT HISTORY: PAIN. TECHNIQUE: Three views of the right foot were performed. FINDINGS: There is a comminuted nondisplaced fracture deformity of the first proximal phalanx. There is soft tissue swelling. The remaining osseous structures are intact. IMPRESSION: COMMINUTED FRACTURE DEFORMITY OF THE FIRST PROXIMAL PHALANX. SOFT TISSUE SWELLING. JOB NUMBER: [id number] MTDD
== END 2017-10-10 09:25 | disposition home or self-care (01) ==
LOC: ER 07:36
DX: S92.411A Displaced fracture of proximal phalanx of right great toe, initial encounter for closed fracture (principal); W22.8XXA Striking against or struck by other objects, initial encounter; J44.9 Chronic obstructive pulmonary disease, unspecified; F17.210 Nicotine dependence, cigarettes, uncomplicated
CPT/HCPCS: 99283

== ENCOUNTER 2018-08-01 12:25 | Emergency (ER) | payer BC ==
[2018-08-01] MEDS ORDERED: 0.9 % SODIUM CHLORIDE 1,000 ML BAG IV ONE ×2 (12:55→13:04)
--- NOTE | 2018-08-01 12:55 | Emergency Department Record ---
History of Present Illness - General Chief Complaint: Seizures Stated Complaint: SEIZURE Time Seen by Provider: 08/01/18 12:49 Source: EMS Mode of Arrival: EMS - History of Present Illness Initial Comments: EMS report that the patient has had 3 seizures today, the 3rd seizure witnessed in the ambulance en route here. She was given 10 mg IM versed and the seizure stopped. The patient has a history of seizures in the past. Last one about 6 months ago. Unab;le to obtain further history at this time. MD Complaint: Seizure Onset/Timin -: Hour(s) Duration of Episode: 30 -: Second(s) Witnessed: Yes - by EMS Trauma: No Seizure History: Known seizure disorder, Compliant with medication Place: Home Possible Precipitating Event: None Associated Symptoms: Denies other symptoms Treatments Prior to Arrival: None - Related Data Previous Rx's Medication Instructions Recorded Hydrocodone/Acetaminophen [[place] 1 tab PO Q6H PRN #12 tab 10/10/17 5mg/325mg] Allergies Allergy/AdvReac Type Severity Reaction Status Date / Time hydromorphone HCl Allergy HIVES Verified 08/01/18 12:29 [From Dilaudid] Travel Screening - Travel/Exposure Within Last 30 Days Have you traveled within the last 30 days?: No - Travel/Exposure Within Last Year Have you traveled outside the [place] in the last year?: No - Additonal Travel Details Have you been exposed to anyone with a communicable illness?: No - Travel Symptoms Symptom Screening: None Review of Systems ROS unobtainable: Other (sedation from versed after a seizure) Reviewed: No additional complaints except as noted below Constitutional: Reports: As per HPI. Denies: Chills, Fever, Malaise, Night sweats, Weakness, Weight change Eyes: Reports: As per HPI. Denies: Eye discharge, Eye pain, Photophobia, Vision change ENT: Reports: As per HPI. Denies: Congestion, Dental pain, Ear pain, Epistaxis , Hearing loss, Throat pain Respiratory: Reports: As per HPI. Denies: Cough, Dyspnea, Hemoptysis, Stridor, Wheezes Cardiovascular: Reports: As per HPI. Denies: Arrhythmia, Chest pain, Dyspnea on exertion, Edema, Murmurs, Orthopnea, Palpitations, Paroxysmal nocturnal dyspnea, Rheumatic Fever, Syncope Endocrine: Reports: As per HPI. Denies: Fatigue, Heat or cold intolerance, Polydipsia, Polyuria Gastrointestinal: Reports: As per HPI. Denies: Abdominal pain, Constipation, Diarrhea, Hematemesis, Hematochezia, Melena, Nausea, Vomiting Genitourinary: Reports: As per HPI. Denies: Abnormal menses, Discharge, Dyspareunia, Dysuria, Frequency, Hematuria, Incontinence, Retention, Urgency Musculoskeletal: Reports: As per HPI. Denies: Arthralgia, Back pain, Gout, Joint swelling, Myalgia, Neck pain Skin: Reports: As per HPI. Denies: Bruising, Change in color, Change in hair/ nails, Lesions, Pruritus, Rash Neurological: Reports: As per HPI. Denies: Abnormal gait, Confusion, Headache, Numbness, Paresthesias, Seizure, Tingling, Tremors, Vertigo, Weakness Psychiatric: Reports: As per HPI. Denies: Anxiety, Auditory hallucinations, Depression, Homicidal thoughts, Suicidal thoughts, Visual hallucinations Hematological/Lymphatic: Reports: As per HPI. Denies: Anemia, Blood Clots, Easy bleeding, Easy bruising, Swollen glands Past Medical History - SOCIAL HISTORY Smoking Status: Current every day smoker Alcohol Use: None Drug Use: None - RESPIRATORY Hx Respiratory Disorders: Yes Hx COPD: Yes - CARDIOVASCULAR Hx Cardio Disorders: Yes Comment:: Pt unsure but reports hx 18 year [employer] - NEURO Hx Neuro Disorders: Yes Hx Headaches: Yes (Migraines) Hx Seizures: Yes - GI Hx GI Disorders: Yes Hx Reflux: Yes Hx Ulcer: Yes - Hx Genitourinary Disorders: No - ENDOCRINE Hx Endocrine Disorders: No - MUSCULOSKELETAL Hx Musculoskeletal Disorders: Yes Hx Arthritis: Yes Hx Fibromyalgia: Yes - PSYCH Hx Psych Problems: Yes Hx Anxiety: Yes Hx Depression: Yes - HEMATOLOGY/ONCOLOGY Hx Hematology/Oncology Disorders: No Family Medical History Any Significant Family History?: Yes Hx Anxiety: Mother, Grandparents Hx Cancer: Mother, Grandparents Hx Depression: Mother, Grandparents Hx HTN: Father, Mother, Brother/Sister, Grandparents Physical Exam - General General Appearance: Oriented x3, Cooperative, No acute distress, Other (resting about arousable with stimulation) - Head Head exam: Normal inspection - Eye Eye exam: Normal appearance, PERRL Pupils: Normal accommodation - ENT ENT exam: Normal exam, Mucous membranes moist, Normal external ear exam, Normal orophraynx, TM's normal bilaterally Ear exam: Normal external inspection. negative: External canal tenderness Nasal Exam: Normal inspection. negative: Discharge, Sinus tenderness Mouth exam: Normal external inspection, Tongue normal Teeth exam: Normal inspection. negative: Dental caries Throat exam: Normal inspection. negative: Tonsillar erythema, Tonsillar exudate - Neck Neck exam: Normal inspection, Full ROM. negative: Tenderness - Respiratory Respiratory exam: Normal lung sounds bilaterally. negative: Respiratory distress - Cardiovascular Cardiovascular Exam: Regular rate, Normal rhythm, Normal heart sounds - GI/Abdominal GI/Abdominal exam: Soft, Normal bowel sounds. negative: Tenderness - Rectal Rectal exam: Deferred - exam: Deferred - Extremities Extremities exam: Normal inspection, Full ROM, Normal capillary refill. negative: Tenderness - Back Back exam: Reports: Normal inspection, Full ROM. Denies: Muscle spasm, Rash noted, Tenderness - Neurological Neurological exam: Alert, CN II-XII intact, Normal gait, Oriented X3, Reflexes normal. negative: Motor sensory deficit - Psychiatric Psychiatric exam: Normal affect, Normal mood - Skin Skin exam: Dry, Intact, Normal color, Warm Course Vital Signs 08/01/18 12:30 Temperature 98.1 F Pulse Rate 84 Respiratory 14 Rate Blood Pressure 108/74 Pulse Ox 95 - Reevaluation(s) Reevaluation #1: Daughter is now at bedside. Additional history obtained and in agreement with previous history. 08/01/18 13:08 Reevaluation #2: Patient states she wants to go home now. All studies have not yet resulted. Talked her into waiting for results for now. 08/01/18 14:42 Reevaluation #3: Patient ambulated to the bathroom and is more aware of her surroundings. states she has improved and is ready for discharge. He is requesting tylenol for a headache. Reviewed CT results with patient and . Her back teeth and masseter region is tender on palpaption, but normal to inspection. 08/01/18 15:46 08/01/18 15:48 Medical Decision Making - Management Options MDM Management: No Additional Work-up Planned - Data Complexity MDM Data: Labs Ordered and/or Reviewed, X-Ray Ordered and/or Reviewed ( Noncontrast Head CT Negatie for acute abnormality. Incidentl note of soft tissue gas in muscles of mastication left side ? bit cheek? per radiologist.) - Lab Data Result diagrams: 08/01/18 13:15 08/01/18 13:15 Disposition Disposition: Discharge Clinical Impression: Seizure, Seizure disorder Disposition: Home, Self-Care Condition: (1) Good Instructions: Recurrent Seizures in Adults (ED) Additional Instructions: Continue present medications. Ice to your jaws if sensitive the next 48 hours. Follow up with your PCP as directed as needed. Eat three or more balanced meals daily every day. Forms: Patient Portal Access Quality - Quality Measures Quality Measures: N/A - Headache: Neuroimaging ICD10 Codes Entered: Yes View Detail: Yes Neurological Exam: Patient did NOT have a normal neurological exam. Headache: Use of Neuroimaging: Patient Exclusion, Abnormal Neuro Exam Medical Reason for Exam: Abnormal Neurological Exam - Blood Pressure Screening Does Patient Have Any of the Following: No Blood Pressure Classification: Normal BP Reading Systolic Measurement: 108 Diastolic Measurement: 74 Screening for High Blood Pressure: < Normal BP, F/U Not Required > [G8783]
[2018-08-01 13:28] LABS: BASO % 0.3 % (0-6); EOS % 1.8 % (0-6); GRAN % 73.1 % (47-80); HEMATOCRIT 43.5 % (35.0-47.0); HEMOGLOBIN 14.4 gm/dl (11.6-16.0); LYMPH % 16.6 % (16-45); MEAN CELL VOLUME 93.8 fl (81-97); MEAN CORPUSCULAR HGB CONC 33.1 g/dl (32-36); MEAN PLATELET VOLUME 11.1 fl (7.4-10.4); MONO % 8.2 % (0-9); PLATELET COUNT 183 K/uL (130-400); RED BLOOD COUNT 4.64 M/uL (3.80-5.40); RED CELL DISTRIBUTION WIDTH 13.4 % (11.5-14.5); WHITE BLOOD COUNT W/O DIFF 10.8 K/uL (4.2-12.2)
[2018-08-01 13:39] LABS: URINE APPEARANCE CLEAR; URINE BILIRUBIN NEGATIVE (NEGATIVE); URINE BLOOD TRACE-I (NEGATIVE); URINE COLOR YELLOW; URINE GLUCOSE (UA) NEGATIVE (NEGATIVE); URINE KETONE NEGATIVE (NEGATIVE); URINE LEUKOCYTE ESTERASE NEGATIVE (NEGATIVE); URINE NITRITE NEGATIVE (NEGATIVE); URINE PROTEIN NEGATIVE (NEGATIVE); URINE UROBILINOGEN 0.2 E.U./dL (0.20 - 1.00)
[2018-08-01 13:40] LABS: BLOOD UREA NITROGEN 18 mg/dL (6-20); CREATININE 0.9 mg/dL (0.5-0.9); EST GLOMERULAR FILTRATION RATE > 60 mL/min; TOTAL PROTEIN 6.8 g/dL (6.6-8.7)
[2018-08-01 13:42] LABS: GLUCOSE,RANDOM 105 mg/dL (74-109)
[2018-08-01 13:43] LABS: AMPHETAMINE SCREEN URINE NOT DETECTED; BARBITURATE SCREEN URINE NOT DETECTED; BENZODIAZEPINE SCREEN URINE DETECTED; COCAINE SCREEN URINE NOT DETECTED; METHADONE SCREEN URINE NOT DETECTED; METHAMPHETAMINE SCREEN NOT DETECTED; OPIATE SCREEN URINE NOT DETECTED; OXYCODONE SCREEN URINE NOT DETECTED; PHENCYCLIDINE SCREEN URINE NOT DETECTED; PROPOXYPHENE SCREEN URINE NOT DETECTED; THC SCREEN URINE NOT DETECTED; TRICYCLIC ANTIDEPRESSANT SCRN NOT DETECTED
[2018-08-01 13:44] LABS: HCG,QUALITATIVE URINE NEGATIVE (NEGATIVE)
[2018-08-01 13:45] LABS: ACETAMINOPHEN 7.1 ug/mL (10.0-30.0); ALB/GLOB RATIO 1.6 (1.1-1.8); ALBUMIN 4.2 g/dL (4.0-5.0); ALKALINE PHOSPHATASE 59 U/L (35-104); ALT/SGPT 8 U/L (<33); AST/SGOT 14 U/L (10.0-35.0); SALICYLATE 5.2 mg/dL (2.8-20)
[2018-08-01 13:56] LABS: URINE EPITHELIAL CELLS 0 - 2 (FEW); URINE RBC 0 - 2 (NONE SEEN); URINE WBC NONE SEEN (0-2/hpf)
[2018-08-01 13:57] LABS: URINE BACTERIA NONE SEEN
[2018-08-01] MEDS ORDERED: ACETAMINOPHEN 500 MG TABLET PO ONE (15:47)
--- NOTE | 2018-08-04 07:53 | CT SCAN REPORT ---
EXAM: CT SCAN HEAD WO CONTRAST HISTORY: SEIZURE. TECHNIQUE: Noncontrast CT brain. COMPARISON: CT brain, 07/22/2013. FINDINGS: No midline shift, mass effect, or abnormal intra- or extra-axial fluid collection. No cerebral edema, focal mass, or intracranial hemorrhage detected. Ventricle sizes appear similar from prior exam. Basal cisterns are not effaced. No displaced calvarial fracture detected. Visualized paranasal sinuses are clear. Cluster of foci of gas in the left facial soft tissues centered near the muscles of mastication, predominantly seen near the left pterygoid muscles with gas seen tracking superiorly along the deep surface of the temporalis muscle. A few foci of gas are also seen near the right pterygoid muscles. IMPRESSION: 1. NO ACUTE INTRACRANIAL FINDINGS. 2. NONSPECIFIC SOFT TISSUE GAS FOCI PREDOMINANTLY SEEN NEAR THE LEFT MUSCLES OF MASTICATION NEAR THE PTERYGOIDS AND TRACKING SUPERIORLY ALONG THE LEFT TEMPORALIS MUSCLE. A FEW FOCI OF GAS ALSO SEEN NEAR THE RIGHT PTERYGOID MUSCULATURE. FINDINGS OF UNCERTAIN CLINICAL SIGNIFICANCE. JOB NUMBER: [id number] MTDD
== END 2018-08-01 16:16 | disposition home or self-care (01) ==
LOC: ER 12:25
DX: G40.909 Epilepsy, unspecified, not intractable, without status epilepticus (principal); R51 Headache
CPT/HCPCS: 99283; 99284; 85025; 80053; 81001; 81025; 80305; 70450; G0480 ×3; 80320; 80329

== ENCOUNTER 2019-02-23 15:30 | Emergency (ER) | payer BC ==
[2019-02-23 16:35] LABS: ABSOLUTE NEUTROPHIL COUNT 6.13; BASO % 0.3 % (0-6); EOS % 4.1 % (0-6); GRAN % 65.2 % (47-80); HEMATOCRIT 42.4 % (35.0-47.0); HEMOGLOBIN 13.8 gm/dl (11.6-16.0); LYMPH % 24.3 % (16-45); MEAN CELL VOLUME 93.4 fl (81-97); MEAN CORPUSCULAR HEMOGLOBIN 30.4 pg (27-33); MEAN CORPUSCULAR HGB CONC 32.5 g/dl (32-36); MEAN PLATELET VOLUME 11.3 fl (7.4-10.4); MONO % 6.1 % (0-9); PLATELET COUNT 175 K/uL (130-400); RED BLOOD COUNT 4.54 M/uL (3.80-5.40); WHITE BLOOD COUNT W/O DIFF 9.4 K/uL (4.2-12.2)
[2019-02-23 16:47] LABS: BLOOD UREA NITROGEN 19 mg/dL (6-20); CREATININE 0.9 mg/dL (0.5-0.9); EST GLOMERULAR FILTRATION RATE > 60 mL/min
[2019-02-23 16:48] LABS: TOTAL PROTEIN 7.2 g/dL (6.6-8.7)
[2019-02-23 16:50] LABS: GLUCOSE,RANDOM 97 mg/dL (74-109)
--- NOTE | 2019-02-23 16:51 | CT SCAN REPORT ---
EXAMINATION: CT Head without IV Contrast EXAM DATE: 02/23/2019 4:43 PM TECHNIQUE: Standard protocol CT images of the head were obtained without intravenous contrast. Orantes l and sagittal reconstructed images were created. INDICATION: amnesia COMPARISON: 08/01/2018 HAND DOMINANCE: Unknown. ENCOUNTER: Not applicable FINDINGS: 1. There is no intracranial mass, midline shift, extraaxial fluid collection or hemorrhage. 2. The ventricles, sulci and cisterns are normal. 3. There are no suspicious area of altered attenuation. 4. There is no fracture. Small sclerotic focus in the clivus is similar compared to prior exam and g iven stability likely represents a benign lesion. 5. The visualized aspects of the orbits, paranasal sinuses, and mastoid air cells are normal. IMPRESSION: 1. No acute intracranial process evident. Dictated by: Eliseo Mcgowan DO on 02/23/2019 4:47 PM. .
[2019-02-23 16:53] LABS: ALB/GLOB RATIO 1.8 (1.1-1.8); ALBUMIN 4.6 g/dL (4.0-5.0); ALKALINE PHOSPHATASE 59 U/L (35-104); ALT/SGPT 7 U/L (<33); AST/SGOT 11 U/L (10.0-35.0)
[2019-02-23 16:54] LABS: ALCOHOL < 0.010 g/dL (0-0.010)
[2019-02-23 17:00] LABS: URINE APPEARANCE CLEAR; URINE BILIRUBIN NEGATIVE (NEGATIVE); URINE BLOOD NEGATIVE (NEGATIVE); URINE COLOR YELLOW; URINE GLUCOSE (UA) NEGATIVE (NEGATIVE); URINE KETONE NEGATIVE (NEGATIVE); URINE LEUKOCYTE ESTERASE NEGATIVE (NEGATIVE); URINE NITRITE NEGATIVE (NEGATIVE); URINE PROTEIN NEGATIVE (NEGATIVE); URINE UROBILINOGEN 0.2 E.U./dL (0.20 - 1.00)
[2019-02-23 17:05] LABS: AMPHETAMINE SCREEN URINE NOT DETECTED; BARBITURATE SCREEN URINE NOT DETECTED; BENZODIAZEPINE SCREEN URINE DETECTED; COCAINE SCREEN URINE NOT DETECTED; METHADONE SCREEN URINE NOT DETECTED; METHAMPHETAMINE SCREEN NOT DETECTED; OPIATE SCREEN URINE NOT DETECTED; OXYCODONE SCREEN URINE NOT DETECTED; PHENCYCLIDINE SCREEN URINE NOT DETECTED; PROPOXYPHENE SCREEN URINE NOT DETECTED; THC SCREEN URINE NOT DETECTED; TRICYCLIC ANTIDEPRESSANT SCRN NOT DETECTED
--- NOTE | 2019-02-23 17:33 | Emergency Department Record ---
History of Present Illness - General Chief Complaint: Confusion Stated Complaint: CONFUSION, Time Seen by Provider: 02/23/19 15:59 Source: Patient, Family Mode of Arrival: Ambulatory Limitations: No limitations - History of Present Illness Initial Comments: pt was brought in for amnesia. she thinks it is 2011 and she doesnt remember that she has grandkids. she has a hx of seizures but doesnt know if she had one today. she was driving and became confused. her daughter brought her in. she has had postictal periods of confusion in tthis long.he past but none that lasted MD Complaint: Altered mental status, Confusion -: Unknown Severity: Moderate Consistency: Constant Context: Seizure disorder, History of similar presentation Associated Symptoms: Seizure - Michelle Coma Scale Eye Response: (4) Open spontaneously Motor Response: (6) Obeys commands Verbal Response: (5) Oriented Michelle Total: 15 - Symptoms of Stroke Symptoms of stroke: Onset of Confusion, Unable to Think Clearly - Related Data Previous Rx's Medication Instructions Recorded Hydrocodone/Acetaminophen [[place] 1 tab PO Q6H PRN #12 tab 10/10/17 5mg/325mg] Allergies Allergy/AdvReac Type Severity Reaction Status Date / Time hydromorphone HCl Allergy HIVES Verified 02/23/19 15:43 [From Dilaudid] Travel Screening - Travel/Exposure Within Last 30 Days Have you traveled within the last 30 days?: No Review of Systems Reviewed: No additional complaints except as noted below Constitutional: Reports: As per HPI. Denies: Chills, Fever, Malaise, Night sweats, Weakness, Weight change Eyes: Reports: As per HPI. Denies: Eye discharge, Eye pain, Photophobia, Vision change ENT: Reports: As per HPI. Denies: Congestion, Dental pain, Ear pain, Epistaxis, Hearing loss, Throat pain Respiratory: Reports: As per HPI. Denies: Cough, Dyspnea, Hemoptysis, Stridor, Wheezes Cardiovascular: Reports: As per HPI. Denies: Arrhythmia, Chest pain, Dyspnea on exertion, Edema, Murmurs, Orthopnea, Palpitations, Paroxysmal nocturnal dyspnea, Rheumatic Fever, Syncope Endocrine: Reports: As per HPI. Denies: Fatigue, Heat or cold intolerance, Polydipsia, Polyuria Gastrointestinal: Reports: As per HPI. Denies: Abdominal pain, Constipation, Diarrhea, Hematemesis, Hematochezia, Melena, Nausea, Vomiting Genitourinary: Reports: As per HPI. Denies: Abnormal menses, Discharge, Dyspareunia, Dysuria, Frequency, Hematuria, Incontinence, Retention, Urgency Musculoskeletal: Reports: As per HPI. Denies: Arthralgia, Back pain, Gout, Joint swelling, Myalgia, Neck pain Skin: Reports: As per HPI. Denies: Bruising, Change in color, Change in lopez ir/nails, Lesions, Pruritus, Rash Neurological: Reports: As per HPI, Confusion. Denies: Abnormal gait, Headache, Numbness, Paresthesias, Seizure, Tingling, Tremors, Vertigo, Weakness Psychiatric: Reports: As per HPI. Denies: Anxiety, Auditory hallucinations, Depression, Homicidal thoughts, Suicidal thoughts, Visual hallucinations Hematological/Lymphatic: Reports: As per HPI. Denies: Anemia, Blood Clots, Easy bleeding, Easy bruising, Swollen glands Past Medical History - SOCIAL HISTORY Smoking Status: Current every day smoker Alcohol Use: None Drug Use: None - RESPIRATORY Hx Respiratory Disorders: Yes Hx COPD: Yes - CARDIOVASCULAR Hx Cardio Disorders: Yes - NEURO Hx Neuro Disorders: Yes Hx Headaches: Yes (Migraines) Hx Seizures: Yes (epilepsy) - GI Hx GI Disorders: Yes Hx Reflux: Yes Hx Ulcer: Yes - Hx Genitourinary Disorders: No - ENDOCRINE Hx Endocrine Disorders: No - MUSCULOSKELETAL Hx Musculoskeletal Disorders: Yes Hx Arthritis: Yes Hx Fibromyalgia: Yes - PSYCH Hx Psych Problems: Yes Hx Anxiety: Yes Hx Depression: Yes - HEMATOLOGY/ONCOLOGY Hx Hematology/Oncology Disorders: No Family Medical History Any Significant Family History?: Yes Hx Anxiety: Mother, Grandparents Hx Cancer: Mother, Grandparents Hx Depression: Mother, Grandparents Hx HTN: Father, Mother, Brother/Sister, Grandparents Physical Exam - General General Appearance: Alert, Cooperative, Mild distress - Head Head exam: Normal inspection - Eye Eye exam: Normal appearance, PERRL, EOMI Pupils: Normal accommodation - ENT ENT exam: Normal exam, Mucous membranes moist, Normal external ear exam, Normal orophraynx Ear exam: Normal external inspection. negative: External canal tenderness Nasal Exam: Normal inspection. negative: Discharge, Sinus tenderness Mouth exam: Normal external inspection, Tongue normal Teeth exam: Normal inspection. negative: Dental caries Throat exam: Normal inspection. negative: Tonsillar erythema, Tonsillar exudate - Neck Neck exam: Normal inspection, Full ROM. negative: Tenderness - Respiratory Respiratory exam: Normal lung sounds bilaterally. negative: Respiratory distress - Cardiovascular Cardiovascular Exam: Regular rate, Normal rhythm, Normal heart sounds - GI/Abdominal GI/Abdominal exam: Soft, Normal bowel sounds. negative: Tenderness - Rectal Rectal exam: Deferred - exam: Deferred - Extremities Extremities exam: Normal inspection, Full ROM, Normal capillary refill. negative: Tenderness - Back Back exam: Reports: Normal inspection, Full ROM. Denies: Muscle spasm, Rash noted, Tenderness - Neurological Neurological exam: Alert, CN II-XII intact, Normal gait - Psychiatric Psychiatric exam: Normal affect, Normal mood - Skin Skin exam: Dry, Intact, Normal color, Warm Course Vital Signs 02/23/19 02/23/19 15:36 17:06 Temperature 98.4 F Pulse Rate 77 Pulse Rate [ 68 Pulse Ox Probe] Respiratory 20 18 Rate Blood Pressure 114/74 Blood Pressure 109/79 [Left Arm] Pulse Ox 98 98 - Reevaluation(s) Reevaluation #1: 02/23/19 18:11 pt still has no recollection of grandkids or who president is or day. Reevaluation #2: 02/23/19 18:42 pt d/w dr da silva who feels that this is a vascular event vs sz event and asked that i load the pt in cerebryx as we do not have iv keppra. he wants her transferred to the ed 02/23/19 18:43 Medical Decision Making - Lab Data Result diagrams: 02/23/19 15:45 02/23/19 15:45 Lab Results 02/23/19 02/23/19 02/23/19 Range/Units 15:45 15:45 16:33 WBC 9.4 (4.2-12.2) K/uL RBC 4.54 (3.80-5.40) M/uL Hgb 13.8 (11.6-16.0) gm/dl Hct 42.4 (35.0-47.0) % MCV 93.4 (81-97) fl MCH 30.4 (27-33) pg MCHC 32.5 (32-36) g/dl RDW 14.0 (11.5-14.5) % Plt Count 175 (130-400) K/uL MPV 11.3 H (7.4-10.4) fl Gran % 65.2 (47-80) % Lymphocytes % 24.3 (16-45) % Monocytes % 6.1 (0-9) % Eosinophils % 4.1 (0-6) % Basophils % 0.3 (0-6) % Absolute Neutrophils 6.13 Sodium 139 (136-145) mmol/L Potassium 3.4 (3.4-4.5) mmol/L Chloride 105 (98-107) mmol/L Carbon Dioxide 21.0 L (22-29) mmol/L Anion Gap 13.0 (7-16) BUN 19 (6-20) mg/dL Creatinine 0.9 (0.5-0.9) mg/dL Estimated GFR > 60 mL/min Random Glucose 97 (74-109) mg/dL Calcium 8.8 (8.6-10.0) mg/dL Total Bilirubin 0.30 (0.2-1.0) mg/dL AST 11 (10.0-35.0) U/L ALT 7 (<33) U/L Alkaline Phosphatase 59 (35-104) U/L Ammonia Cancelled 31 Total Protein 7.2 (6.6-8.7) g/dL Albumin 4.6 (4.0-5.0) g/dL Globulin 2.6 (1.4-4.8) gm/dL Albumin/Globulin Ratio 1.8 (1.1-1.8) Urine Color Urine Appearance Urine pH (5.0-8.0) Ur Specific [place] (1.002-1.030) Urine Protein (NEGATIVE) Urine Glucose (UA) (NEGATIVE) Urine Ketones (NEGATIVE) Urine Blood (NEGATIVE) Urine Nitrite (NEGATIVE) Urine Bilirubin (NEGATIVE) Urine Urobilinogen (0.20 - 1.00) E.U./dL Ur Leukocyte Esterase (NEGATIVE) Urine Opiates Screen Ur Oxycodone Screen Urine Methadone Screen Ur Propoxyphene Screen Ur Barbituates Screen Ur Tricyclics Screen Ur Phencyclidine Scrn Ur Amphetamine Screen U Methamphetamines Scrn U Benzodiazepines Scrn Urine Cocaine Screen Urine Cannabis Screen Ethyl Alcohol < 0.010 (0-0.010) g/dL 02/23/19 02/23/19 Range/Units 17:02 17:05 WBC (4.2-12.2) K/uL RBC (3.80-5.40) M/uL Hgb (11.6-16.0) gm/dl Hct (35.0-47.0) % MCV (81-97) fl MCH (27-33) pg MCHC (32-36) g/dl RDW (11.5-14.5) % Plt Count (130-400) K/uL MPV (7.4-10.4) fl Gran % (47-80) % Lymphocytes % (16-45) % Monocytes % (0-9) % Eosinophils % (0-6) % Basophils % (0-6) % Absolute Neutrophils Sodium (136-145) mmol/L Potassium (3.4-4.5) mmol/L Chloride (98-107) mmol/L Carbon Dioxide (22-29) mmol/L Anion Gap (7-16) BUN (6-20) mg/dL Creatinine (0.5-0.9) mg/dL Estimated GFR mL/min Random Glucose (74-109) mg/dL Calcium (8.6-10.0) mg/dL Total Bilirubin (0.2-1.0) mg/dL AST (10.0-35.0) U/L ALT (<33) U/L Alkaline Phosphatase (35-104) U/L Ammonia Total Protein (6.6-8.7) g/dL Albumin (4.0-5.0) g/dL Globulin (1.4-4.8) gm/dL Albumin/Globulin Ratio (1.1-1.8) Urine Color Yellow Urine Appearance Clear Urine pH 7.5 (5.0-8.0) Ur Specific [place] 1.010 (1.002-1.030) Urine Protein Negative (NEGATIVE) Urine Glucose (UA) Negative (NEGATIVE) Urine Ketones Negative (NEGATIVE) Urine Blood Negative (NEGATIVE) Urine Nitrite Negative (NEGATIVE) Urine Bilirubin Negative (NEGATIVE) Urine Urobilinogen 0.2 (0.20 - 1.00) E.U./dL Ur Leukocyte Esterase Negative (NEGATIVE) Urine Opiates Screen Not detected Ur Oxycodone Screen Not detected Urine Methadone Screen Not detected Ur Propoxyphene Screen Not detected Ur Barbituates Screen Not detected Ur Tricyclics Screen Not detected Ur Phencyclidine Scrn Not detected Ur Amphetamine Screen Not detected U Methamphetamines Scrn Not detected U Benzodiazepines Scrn Detected Urine Cocaine Screen Not detected Urine Cannabis Screen Not detected Ethyl Alcohol (0-0.010) g/dL Disposition Disposition: Transfer Clinical Impression: Global amnesia Disposition: [facility]: needs neurology Accepting Physician: ivy ca Time Discussed w/Accepting Physician: 18:41 Forms: Patient Portal Access Quality - Quality Measures Quality Measures: N/A - Blood Pressure Screening Does Patient Have Any of the Following: No Blood Pressure Classification: Normal BP Reading Systolic Measurement: 114 Diastolic Measurement: 74 Screening for High Blood Pressure: < Normal BP, F/U Not Required > [G8783]
[2019-02-23] MEDS ORDERED: NICOTINE14 MG/24 HOUR PATCH TD SCH (18:15)
[2019-02-23] MEDS ORDERED: FOSPHENYTOIN SODIUM IV ONE (18:37)
[2019-02-23] MEDS ORDERED: SODIUM CHLORIDE 0.9% IV ONE (18:37)
== END 2019-02-23 19:16 | disposition short-term general hospital (02) ==
LOC: ER 15:30
DX: G45.4 Transient global amnesia (principal); F17.210 Nicotine dependence, cigarettes, uncomplicated
CPT/HCPCS: 70450; 80053; 80305; 80320; 81003; 82140; 85025; 96374; 99285